=== PATIENT | male | born 1990 | race Asian ===

== ENCOUNTER 2017-10-20 19:11 | Emergency (ER) | payer OTHER ==
[~2017-10-20] VITALS: Ht 170.2 cm; Wt 81.9 kg
[2017-10-20] MEDS ORDERED: MECLIZINE CHEWABLE 25 MG TAB ONE (19:44)
[2017-10-20] MEDS ORDERED: MECLIZINE CHEWABLE 25 MG TAB PO ONE (20:00)
[2017-10-20 20:10] LABS: BASOPHILS # (AUTO) 0.02 x10^3/uL (0-0.1); BASOPHILS % (AUTO) 0 % (0-1); EOSINOPHILS # (AUTO) 0.27 x10^3/uL (0-0.4); EOSINOPHILS % (AUTO) 3 % (1-7); LYMPHOCYTES # (AUTO) 2.23 x10^3/uL (1-3.4); LYMPHOCYTES % (AUTO) 26 % (22-44); MD NO; MEAN CORPUSCULAR HEMOGLOBIN 29.7 pg (27.5-34.5); MEAN CORPUSCULAR HGB CONC 34.7 g/dL (33.2-36.2); MEAN CORPUSCULAR VOLUME 85.4 fL (81-97); MEAN PLATELET VOLUME 10.4 fL (7.4-10.4); MONOCYTES # (AUTO) 0.47 x10^3/uL (0.2-0.8); MONOCYTES % (AUTO) 6 % (2-9); NEUTROPHILS # (AUTO) 5.48 x10^3/uL (1.8-6.8); NEUTROPHILS % (AUTO) 65 % (42-75); PLATELET COUNT 244 x10^3/uL (130-400); RED BLOOD COUNT 5.38 x10^6/uL (4.38-5.82); RED CELL DISTRIBUTION WIDTH 12.4 % (9.4-14.8)
[2017-10-20 20:21] LABS: ALANINE AMINOTRANSFERASE 55 U/L (12-78); ANION GAP 9 mmol/L (5-15); CALCIUM 8.7 mg/dL (8.5-10.1); CHLORIDE 108 mmol/L (98-107); CREATININE 0.98 mg/dL (0.7-1.3)
[2017-10-20 20:24] LABS: ALKALINE PHOSPHATASE 90 U/L (45-117); BILIRUBIN,TOTAL 0.4 mg/dL (0.2-1.0); TOTAL PROTEIN 8.3 g/dL (6.4-8.2)
[2017-10-20 20:51] VITALS: BP 138/84
== END 2017-10-20 20:53 | disposition home or self-care (01) ==
LOC: ED 19:39
DX: H81.399 Other peripheral vertigo, unspecified ear (principal); H81.10 Benign paroxysmal vertigo, unspecified ear
CPT/HCPCS: 36415; 70450; 71046; 80053; 85025; 93005; 99285